=== PATIENT | female | born 1970 | race Caucasian/White ===

== ENCOUNTER 2018-09-28 14:12 | Emergency (ER) | payer MEDICAID ==
[~2018-09-28] VITALS: Ht 160 cm; Wt 67.9 kg
[2018-09-28 14:19] VITALS: Ht 160 cm; Wt 67.9 kg
[2018-09-28] MEDS ORDERED: KETOROLAC 15 MG INJ IV STA (16:55)
[2018-09-28] MEDS ORDERED: SOD CHLORIDE 0.9% 1,000 ML IV STA (16:55)
[2018-09-28] MEDS ORDERED: ALPRAZOLAM 1 MG TAB PO ONE (17:00)
--- NOTE | 2018-09-28 17:38 | ERD ---
ER Documentation Chief Complaint Chief Complaint c/o right facial numbness x3 days, worse today. HPI 48-year-old woman here for paresthesias and headache times 2 weeks. 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 She has had no chest pain or shortness of breath, no slurred speech, no weakness in her arms or legs. ROS All systems reviewed and are negative except as per history of present illness. Medications Home Meds Active Scripts Cephalexin* (Keflex*) 500 Mg Capsule, 500 MG PO QID for 5 Days, CAP Prov:BRIDGET SULTANA MD 09/28/18 Ibuprofen* (Motrin*) 600 Mg Tab, 600 MG PO Q8 PRN for PAIN AND/OR INFLAMMATION, #30 TAB Prov:BRIDGET SULTANA MD 09/28/18 Allergies Allergies: Coded Allergies: No Known Allergy (Unverified , 09/28/18) PMhx/Soc Medical and Surgical Hx: pt denies Medical Hx, pt denies Surgical Hx Hx Alcohol Use: No Hx Substance Use: No Hx Tobacco Use: No Smoking Status: Never smoker FmHx Family History: No diabetes Physical Exam Vitals Vital Signs Date Temp Pulse Resp B/P (MAP) Pulse Ox O2 O2 Flow FiO2 Time Delivery Rate 09/28/18 78 18 121/77 99 Room Air 18:44 (92) 09/28/18 62 16 121/77 99 Room Air 17:34 (92) 09/28/18 98.1 83 20 121/72 97 14:19 (88) Physical Exam Const: afebrile, appears anxious Head: Atraumatic Eyes: Normal Conjunctiva ENT: Normal External Ears, Nose and Mouth. Neck: Full range of motion. No meningismus. Resp: Clear to auscultation bilaterally Cardio: Regular rate and rhythm, no murmurs Abd: Soft, non tender, non distended. Normal bowel sounds Skin: No petechiae or rashes Back: No midline or flank tenderness Ext: No cyanosis, or edema Neur: Awake and alert x3, no focal deficits or facial asymmetry, no pronator drift, pupils equal round reactive to light, cranial nerves II through XII equal bilateral Psych: Appears anxious Result Diagram: 09/28/18 1706 09/28/18 1706 Results 24 hrs Laboratory Tests Test 09/28/18 17:06 White Blood Count 6.5 10^3/ul Red Blood Count 4.27 10^6/ul Hemoglobin 12.3 g/dl Hematocrit 37.3 % Mean Corpuscular Volume 87.4 fl Mean Corpuscular Hemoglobin 28.8 pg Mean Corpuscular Hemoglobin Concent 33.0 g/dl Red Cell Distribution Width 13.2 % Platelet Count 304 10^3/UL Mean Platelet Volume 9.9 fl Immature Granulocytes % 0.300 % Neutrophils % 50.1 % Lymphocytes % 38.7 % Monocytes % 7.7 % Eosinophils % 2.6 % Basophils % 0.6 % Nucleated Red Blood Cells % 0.0 /100WBC Immature Granulocytes # 0.020 10^3/ul Neutrophils # 3.3 10^3/ul Lymphocytes # 2.5 10^3/ul Monocytes # 0.5 10^3/ul Eosinophils # 0.2 10^3/ul Basophils # 0.0 10^3/ul Nucleated Red Blood Cells # 0.0 10^3/ul Urine Color YELLOW Urine Clarity SLIGHTLY CLOUDY Urine pH 6.0 Urine Specific [place]ie 1.025 Urine Ketones NEGATIVE mg/dL Urine Nitrite NEGATIVE mg/dL Urine Bilirubin NEGATIVE mg/dL Urine Urobilinogen NEGATIVE mg/dL Urine Leukocyte Esterase 2+ Efrain/ul Urine Microscopic RBC 1 /HPF Urine Microscopic WBC 4 /HPF Urine Squamous Epithelial Cells MODERATE /HPF Urine Bacteria FEW /HPF Urine Mucus MODERATE /HPF Urine Hemoglobin NEGATIVE mg/dL Urine Glucose NEGATIVE mg/dL Urine Total Protein NEGATIVE mg/dl Sodium Level 141 mmol/L Potassium Level 3.8 mmol/L Chloride Level 99 mmol/L Carbon Dioxide Level 27 mmol/L Anion Gap 15 Blood Urea Nitrogen 10 mg/dl Creatinine 0.41 mg/dl Est Glomerular Filtrat Rate mL/min > 60 mL/min Glucose Level 144 mg/dl Calcium Level 9.2 mg/dl Total Bilirubin 0.1 mg/dl Direct Bilirubin 0.00 mg/dl Indirect Bilirubin 0.1 mg/dl Aspartate Amino Transf (AST/SGOT) 30 IU/L Alanine Aminotransferase (ALT/SGPT) 45 IU/L Alkaline Phosphatase 125 IU/L Troponin I < 0.012 ng/ml Total Protein 8.2 g/dl Albumin 4.2 g/dl Globulin 4.00 g/dl Albumin/Globulin Ratio 1.05 Lipase 109 U/L Current Medications Medications Dose Sig/Milagros Start Time Status Last (Trade) Ordered Route PRN Stop Time Admin Dose Reason Admin Alprazolam 1 mg ONCE ONCE 09/28/18 DC 09/28/18 (Xanax) PO 17:00 17:29 09/28/18 17:05 Sodium 1,000 ml @ Q1H STAT 09/28/18 DC 09/28/18 Chloride 1,000 mls/hr IV 16:55 17:29 09/28/18 17:54 Ketorolac 15 mg ONCE STAT 09/28/18 DC 09/28/18 Tromethamine IV 16:55 17:29 (Toradol) 09/28/18 17:05 Cephalexin 500 mg ONCE ONCE 09/28/18 DC 09/28/18 (Keflex) PO 18:30 18:34 09/28/18 18:31 Procedures/MDM IV line was established patient was placed on cardiac care nurse rhythm strip revealed a sinus rhythm at about 60 bpm with upright P and T waves. Patient was afebrile EKG performed, read by me: 62 bpm, normal sinus rhythm, normal axis, no acute ST segment changes, narrow QRS complex, with good R-wave progression in precordial leads. CT scan of the head was negative for acute bleed mass or shift. Administered 1 L normal saline IV, Toradol 15 mg IV x1, alprazolam 1 mg p.o. CBC and electrolytes were normal, liver function tests were normal, troponin was negative, urinalysis was positive for infection. I treated her here with cephalexin 500 mg p.o. x1. Differential diagnoses considered, included but not limited to acute coronary syndrome, pulmonary embolism, aortic dissection, abdominal aortic aneurysm, sepsis, stroke, meningitis, encephalitis, pneumonia, appendicitis, cholecystitis, bowel obstruction, pyelonephritis, nephrolithiasis, cystitis, as well as metabolic, hematologic, and electrolyte abnormalities. As well as abscess, cellulitis, fractures, and dislocations. Patient feels much better at this time, and vital signs are normal, symptoms have improved. I did give strict instructions to return to the ED if symptoms continue or worsen, patient will otherwise follow-up with primary care physician. Patient understood instructions and agreed to plan. Disclaimer: Inadvertent spelling and grammatical errors are likely due to EHR/dictation software use and do not reflect on the overall quality of patient care. Also, please note that the electronic time recorded on this note does not necessarily reflect the actual time of the patient encounter. Departure Diagnosis: Primary Impression: Paresthesias Additional Impressions: Acute anxiety Acute UTI Condition: Good BRIDGET SULTANA MD Sep 28, 2018 17:38
[2018-09-28] MEDS ORDERED: CEPH-443 PO (18:19)
[2018-09-28] MEDS ORDERED: IBUP-1542 PO (18:19)
[2018-09-28] MEDS ORDERED: CEPHALEXIN 500 MG CAP PO ONE (18:30)
[2018-09-28 18:44] VITALS: BP 121/77; PULSE 78; RESP 18
== END 2018-09-28 18:50 | disposition home or self-care (01) ==
LOC: E/R 14:12
DX: R20.2 Paresthesia of skin (principal); F41.9 Anxiety disorder, unspecified; N39.0 Urinary tract infection, site not specified; R40.2252 Coma scale, best verbal response, oriented, at arrival to emergency department; R40.2362 Coma scale, best motor response, obeys commands, at arrival to emergency department; R40.2142 Coma scale, eyes open, spontaneous, at arrival to emergency department
CPT/HCPCS: 36415; 70450; 80053; 81001; 83690; 84484; 85025; 93005; 96361; 96374; J1885; J7030; Z7502; Z7610